=== PATIENT | female | born 1955 | race Caucasian/White ===

== ENCOUNTER 2020-01-02 14:32 | Emergency (ER) | payer BC ==
[2020-01-02] MEDS ORDERED: Proparacaine 0.5% Ophth Soln 15 ML Bottle EYELF PRN (14:37)
--- NOTE | 2020-01-02 15:05 | EDM.PDOC ---
ED HPI GENERAL MEDICAL PROBLEM - General Chief Complaint: Eye Problems Stated Complaint: CHLORINE POWDER IN R EYE Time Seen by Provider: 01/02/20 14:45 Source of Information: Reports: Patient History Limitations: Reports: No Limitations - History of Present Illness INITIAL COMMENTS - FREE TEXT/NARRATIVE: Patient comes into the emergency department with complaint of right eye ir ritation. Patient was at home and was opening a container of chlorine tablets upon her pool and the wind caught the lid and blue chlorine powder in her right eye. Patient states she felt a burning sensation immediately. She tried to flush her eye out with saline drops at home however the burning continued and she presented to the emergency department for further evaluation. Patient states that she cannot see out of the right eye however it is fuzzy and it does burn. Patient denies any chronic eye conditions or concerns. Patient denies any dizziness, lightheadedness, shortness of breath, inhalation, left eye discomfort, skin irritation, or burning sensation around the exterior portion of the eye. Patient denies any symptoms getting worse currently she states that it does feel better if she closes her eye however she does open it it does have light sensitivity. Patient also denies any exposure to COVID-19 or current or active symptoms. She is been relatively healthy and has no other issues or concerns. Onset: Sudden Quality: Reports: Ache, Burning Severity: Moderate Improves with: Reports: Immobilization Worsens with: Reports: Movement Context: Reports: Activity Associated Symptoms: Reports: No Other Symptoms - Related Data Allergies Allergy/AdvReac Type Severity Reaction Status Date / Time Penicillins Allergy Itching Verified 10/23/14 10:51 Home Meds: Home Meds predniSONE [Prednisone] 40 mg PO DAILY #8 tablet 10/23/14 [Rx] Past Medical History Other Gastrointestinal History: heartburn Other Neuro History: restless legs ED ROS GENERAL - Review of Systems Review Of Systems: Comprehensive ROS is negative, except as noted in HPI. Constitutional: Reports: No Symptoms Respiratory: Reports: No Symptoms Cardiovascular: Reports: No Symptoms Endocrine: Reports: No Symptoms GI/Abdominal: Reports: No Symptoms : Reports: No Symptoms Musculoskeletal: Reports: No Symptoms Skin: Reports: No Symptoms Neurological: Reports: No Symptoms Psychiatric: Reports: No Symptoms Hematologic/Lymphatic: Reports: No Symptoms Immunologic: Reports: No Symptoms ED EXAM GENERAL W FULL EYE - Physical Exam Exam: See Below Exam Limited By: No Limitations General Appearance: Alert, WD/WN, No Apparent Distress Eye Exam: Right Eye: Other (redness, watery, inflammed, redness noted), Bilateral Eye: EOMI, Normal Fundi, Normal Inspection, PERRL Eyelids: Right: Erythema, Bilateral: Normal Appearance, Edema, Ecchymosis Conjunctiva & Sclera: Right: Other (redness/irritation note), Left: Normal Appearance, Conjunctival Edema Cornea Exam: Bilateral: Normal Appearance Extraocular Movements: Bilateral: Intact Pupils: Normal Accommodation Pupillary Size: Bilateral: 2 mm Pupillary Reaction: Bilateral: Brisk Anterior Chamber: Bilateral: Normal Appearance Nose: Normal Inspection, Normal Mucosa, No Blood Throat/Mouth: Normal Inspection, Normal Lips, Normal Teeth, Normal Oropharynx, Normal Voice, No Airway Compromise Head: Atraumatic, Normocephalic Neck: Normal Inspection, Supple, Non-Tender, Full Range of Motion Extremities: Normal Inspection, Normal Range of Motion, Non-Tender, No Pedal Edema Neurological: Alert, Oriented, Normal Gait Psychiatric: Normal Affect, Normal Mood Skin Exam: Warm Course - Orders/Labs/Meds Orders: Active Orders 24 hr Category Date Time Status Proparacaine [Proparacaine 0.5% Ophth Soln] Med 01/02/20 14:37 Active 1 ml EYELF ASDIRECTED PRN Medication Orders Proparacaine HCl (Proparacaine 0.5% Ophth Soln) 1 ml EYELF ASDIRECTED PRN PRN Reason: Other Meds: Medications Generic Name Dose Route Start Last Admin Trade Name Freq PRN Reason Stop Dose Admin Proparacaine HCl 1 ml 01/02/20 14:37 Proparacaine 0.5% Ophth Soln EYELF ASDIRECTED PRN Other Departure - Departure Time of Disposition: 15:30 Disposition: Home, Self-Care 01 Condition: Good Clinical Impression: Eye irritation, Chemical exposure of eye - Discharge Information *PRESCRIPTION DRUG MONITORING PROGRAM REVIEWED*: Not Applicable *COPY OF PRESCRIPTION DRUG MONITORING REPORT IN PATIENT [facility]NA: Not Applicable Instructions: Chemical Burn of the Eyes, Adult Forms: ED Department Discharge Additional Instructions: 1. Can use eye drops in right eye every hour as needed for eye irritation 2. rest 3. increase your water intake 4. Continue all at home medications 5. Activity and diet as tolerated 6. Can take over the counter Tylenol or ibuprofen for any pain or discomfort 7. Follow up with PCP or eye doctor if symptoms continue, return, or progress 8. Call with any questions or concerns - My Orders Last 24 Hours: My Active Orders 01/02/20 14:37 Proparacaine [Proparacaine 0.5% Ophth Soln] 1 ml EYELF ASDIRECTED PRN - Assessment/Plan Last 24 Hours: My Active Orders 01/02/20 14:37 Proparacaine [Proparacaine 0.5% Ophth Soln] 1 ml EYELF ASDIRECTED PRN Assessment:: 1. Chlorine in right eye 2. chemical burn to the right eye Plan: 1. Proparacaine drop to the eye for pain 2. 2 Liters of lactated ringer eye was completed 3. Patient and nursing staff was updated regarding the plan of care 4. Education provided the patient regarding activity, diet, rest, [id number] medication modalities, and follow-up care was provided 5. Patient and family are agreeable to the above plan of care 6. All questions and concerns were addressed with the patient and family prior to discharge
[2020-01-02] MEDS ORDERED: Lactated Ringers 1,000 ML IV SCH ×2 (15:15)
[2020-01-02 16:07] VITALS: BP 124/54; PULSE 75
== END 2020-01-02 15:30 | disposition home or self-care (01) ==
LOC: VM.ED 14:32
DX: H57.89 Other specified disorders of eye and adnexa (principal); Z88.0 Allergy status to penicillin; Z77.098 Contact with and (suspected) exposure to other hazardous, chiefly nonmedicinal, chemicals
CPT/HCPCS: 99283; J7120